=== PATIENT | female | born 1945 ===

== ENCOUNTER 2019-02-06 13:54 | Outpatient (REF) | payer OTHER, SELFPAY ==
[2019-02-06 21:48] LABS: Abs Immature Grans 0.01 k/cumm (0.0-0.09); Absolute Basophil Count 0.05 k/cumm (0.0-0.2); Absolute Eosinophil Count 0.15 k/cumm (0.0-0.7); Absolute Lymphocyte Count 2.41 k/cumm (1.2-3.4); Absolute Monocyte Count 0.69 k/cumm (0.11-0.7); Absolute Neutrophil Count 5.91 k/cumm (1.2-6.7); Basophils % 0.5; Eosinophils % 1.6; HCT 43.2 % (36.0-46.0); HGB 13.4 g/dL (12.0-15.5); Immature Grans % 0.1; Lymphocytes % 26.1; Mean Corpuscular Hemoglobin 27.7 pg (27.0-33.0); Mean Corpuscular Volume 89.4 fL (80-95); Mean Platelet Volume 11.9 fL (8.0-11.0); Monocytes % 7.5; Neutrophils % 64.2; Platelet Count 286 x1000/uL (130-400); RBC 4.83 m/cumm (4.00-5.20); RBC Distribution Width 14.6 % (11.7-14.6); White Blood Cell Count 9.22 k/cumm (4.4-10.8)
[2019-02-06 22:04] LABS: ALT 28 U/L (12-78); AST 29 U/L (15-37); Albumin 3.8 g/dL (3.4-5.0); Alkaline Phosphatase 133 U/L (46-116); Anion Gap 6.8 mmol/L (3-11); BUN 13 mg/dL (7-18); Bilirubin, Total 0.3 mg/dL (0.2-1.0); C-Reactive Protein 1.48 mg/dL (0.0-0.3); CO2 31.2 mmol/L (21.0-32.0); CREATININE 0.95 mg/dL (0.55-1.02); Calcium 9.4 mg/dL (8.5-10.1); Chloride 101 mmol/L (98-107); Estimated GFR 57.99 (mL/min/1.73m2); Glucose 92 mg/dL (70-100); Potassium 4.5 mmol/L (3.5-5.1); Sodium 139 mmol/L (136-145); Total Protein 7.5 g/dL (6.4-8.2)
[2019-02-06 22:33] LABS: ESR 46 MM/HR (0-30)
== END 2019-02-06 14:14 ==
LOC: NCHCN 13:54
PROVIDERS: PCP Nurse Practitioner Family; Visit Provider Nurse Practitioner Family
DX: R31.9 Hematuria, unspecified (principal); R42 Dizziness and giddiness; R07.89 Other chest pain; E11.9 Type 2 diabetes mellitus without complications; G43.009 Migraine without aura, not intractable, without status migrainosus
CPT/HCPCS: 80053; 85652; 85025; 86140; 87086

== ENCOUNTER 2019-03-06 16:46 | Outpatient (REF) | payer OTHER, SELFPAY | END 2019-03-06 17:06 | LOC: NCHCN 16:46 | PROVIDERS: PCP Nurse Practitioner Family; Visit Provider Family Medicine | DX: R31.9 Hematuria, unspecified (principal) | CPT/HCPCS: 87086 ==

== ENCOUNTER 2019-05-26 14:25 | Outpatient (REF) | payer OTHER, SELFPAY ==
[2019-05-26 21:32] LABS: COMMENT (LAB VIEW ONLY) 168.44 mg/dL; Microalb ug/mg Crea 4.6 ug/mg Cr
== END 2019-05-26 14:45 ==
LOC: NCHCN 14:25
PROVIDERS: PCP Nurse Practitioner Family; Visit Provider Nurse Practitioner Family
DX: E11.9 Type 2 diabetes mellitus without complications (principal)
CPT/HCPCS: 82043; 82570